=== PATIENT | male | born 1970 | race American Indian/Alaskan Native ===

== ENCOUNTER 2018-03-31 17:56 | Emergency (ER) | payer OTHER ==
[2018-03-31 17:56] VITALS: BMI 31.6
[2018-03-31] MEDS ORDERED: Sodium Chloride 0.9% 1,000 ML IV ONE (19:40)
--- NOTE | 2018-03-31 19:45 | C.PDOC ---
History Of Present Illness 47 yo male come in for evaluation of epigastric abdominal pain intermittent for past few weeks. Pt reports, pain is localized over epigastric area associated with nausea, bloating, watery non-bloody diarrhea. Pt admits, was seen by PMD 2 weeks ago due to same complaints, received Rx: Doxycycline, complete few days ago without significant improvement. Pt sts, early today, developed episode of severe epigastric pain associated with watery, non-bloody diarrhea after had some food at home. At present time, pt reports, pain is moderate improved. Otherwise,p t denies fever, chills, recent illness, CP, SOB, dyspnea, diaphoresis, palpitation, vomiting, melena, hematoschezia, back pain, UTI Sx. Ambulate to ED for evaluation, not in nay apparent distress. Time Seen by Provider: 03/31/18 19:22 Chief Complaint (Nursing): Abdominal Pain History Per: Patient Past Medical History Reviewed: Historical Data, Nursing Documentation, Vital Signs Vital Signs: Last Vital Signs Temp 97.3 F L 03/31/18 22:45 Pulse 67 03/31/18 22:45 Resp 18 03/31/18 22:45 BP 112/74 03/31/18 22:45 Pulse Ox 97 03/31/18 22:45 - Medical History PMH: Arthritis, Diabetes, HTN Denies: Anemia, Asthma, Emphysema, HIV, Migraine, Pulmonary Embolism, Chronic Kidney Disease, Seizures - [facility] Procedures DRAINAGE OF RIGHT HAND SKIN, EXTERNAL APPROACH (07/30/15) EXCISION OF RIGHT HAND SKIN, EXTERNAL APPROACH (07/30/15) INSERTION OF INFUSION DEV INTO SUP VENA CAVA, PERC APPROACH (07/30/15) REPAIR RIGHT HAND SKIN, EXTERNAL APPROACH (07/30/15) Family History: States: Unknown Family Hx - Social History Hx Tobacco Use: No Hx Alcohol Use: No Hx Substance Use: No - Immunization History Hx Tetanus Toxoid Vaccination: No Hx Influenza Vaccination: Yes Hx Pneumococcal Vaccination: No Review Of Systems Except As Marked, All Systems Reviewed And Found Negative. Constitutional: Negative for: Fever, Chills ENT: Negative for: Throat Pain Cardiovascular: Negative for: Chest Pain, Palpitations Respiratory: Negative for: Cough, Shortness of Breath, Wheezing Gastrointestinal: Positive for: Abdominal Pain, Diarrhea. Negative for: Nausea , Vomiting, Constipation, Melena, Hematochezia, Hematemesis, Rectal Pain Genitourinary: Negative for: Dysuria, Incontinence Musculoskeletal: Negative for: Neck Pain, Back Pain Skin: Negative for: Rash Neurological: Negative for: Weakness, Numbness, Headache, Dizziness Physical Exam - Physical Exam Appears: Well, Non-toxic, No Acute Distress Skin: Normal Color, Warm, Dry, No Rash Head: Normacephalic Eye(s): bilateral: PERRL Nose: No Flaring, No Discharge Oral Mucosa: Moist Throat: No Erythema, No Drooling Neck: Trachea Midline, Supple Cardiovascular: Rhythm Regular, No Murmur, No JVD, Other ((-) carotid bruits B/L ) Respiratory: No Decreased Breath Sounds, No Accessory Muscle Use, No Stridor, No Wheezing Gastrointestinal/Abdominal: Soft, Tenderness (mild epigastric), No Distention, No Guarding, No Rebound Back: No CVA Tenderness Extremity: Normal ROM, No Pedal Edema, No Deformity, No Swelling Neurological/Psych: Oriented x3, Normal Speech ED Course And Treatment - Laboratory Results Result Diagrams: 03/31/18 20:13 03/31/18 20:13 Lab Interpretation: Normal O2 Sat by Pulse Oximetry: 98 Pulse Ox Interpretation: Normal - CT Scan/US CT abd/pelvis Other Rad Studies (CT/US): Radiology Report Reviewed CT/US Interpretation: FINDINGS: Lung bases: Subpleural reticular opacities within the dependent aspect of the lower lobes may. represent subsegmental atelectasis or scarring. Heart: Left atrial enlargement. Mediastinum: A moderate hiatal hernia is present. ABDOMEN: Liver: The liver is normal in appearance. Gallbladder and bile ducts: The gallbladder is normal. No calcified stones. No ductal dilation. Pancreas: The pancreas is normal. No ductal dilation. Spleen: The spleen is normal. Adrenals: 1.7 cm nodule in the left adrenal gland. Normal appearance of the right adrenal gland. Kidneys and ureters: The kidneys are normal. The ureters are normal. No hydronephrosis. Stomach and bowel: Distended loops of contrast-filled bowel within the left upper quadrant. extending into the right lower abdomen. Focal transition point in the region of ileal wall thickening. within the right lower quadrant (axial image 128 and coronal image 67). Proximal areas of small. bowel feces suggestive of delayed transit. PELVIS: Appendix: The appendix measures up to 9 mm in diameter. However, air and contrast extends into. the appendiceal lumen. No periappendiceal fat stranding. Bladder: The bladder is normal. Reproductive: The prostate gland and seminal vesicles are normal. ABDOMEN and PELVIS: Intraperitoneal space: Normal. No free air. No significant fluid collection. Bones/joints: Thoracolumbar spondylosis. No acute osseous abnormality. No dislocation. Soft tissues: Bilateral gynecomastia. Vasculature : Normal. No abdominal aortic aneurysm. Lymph nodes: Normal. No enlarged lymph nodes. IMPRESSION: 1. Ileal wall thickening within the right lower quadrant. Correlate for inflammatory or infectious colitis. 2. Subtle transition point in the region of the bowel wall thickening with proximal bowel distention and. regions of small bowel feces suggesting some element of chronic delayed transit. 3. Left atrial enlargement. 4. Indeterminate left adrenal nodule. Recommend follow-up abdominal CT or MR in 12 months. Alternatively, if there is a history of malignancy, consider further evaluation with PET, unenhanced. abdominal CT or MR. 5. Gynecomastia. 6. The appendix measures above the upper limit of normal. However, the appendix is air and. contrast filled without secondary findings to suggest acute appendicitis. Thank you for allowing us to participate in the care of your patient. Progress Note: On re-evaluation, pot is afebrile, hemodynamicaly stable. NOn- toxic. Tolerate po well in ED. PulsEOx 98% RA. ENT: no acute findings. Neck : Supple, (-) meningeal sign. Lungs: CTA B/L, BS equal B/L. CVS: (+)S1S2, reg. Abd: benign, (-) guarding, (-) rebound, (-) localized tenderness. back: ( -) CVA tenderness. Blood work review and appears normal, no acute findings. CT abd/pelvis exam c/w colitis. Case discussed with , recommend Rx: Flaygyl with outpt f/u now. Pt has clinical findings c/w epigastric pain, colitis. Pt advised and ref. to f/u with PMD, GI in 2-3 days for re- evaluation. return to ED if anyw orsening or new changes. Disposition Counseled Patient/Family Regarding: Studies Performed, Diagnosis, Need For Followup, Rx Given - Disposition Referrals: Andrea Fatima MD [Staff Provider] - Disposition: HOME/ ROUTINE Disposition Time: 23:46 Condition: STABLE Additional Instructions: Encourage fluids Diet restriction take medication as prescribed Follow up with PMD in 2-3 days for re-evaluation. return to ED if any worsening or new changes. Prescriptions: metroNIDAZOLE [Flagyl] 500 mg PO BID #14 tab Instructions: Diarrhea and Traveler's Diarrhea, Adult (DC) Forms: [facility] ([place]) - Clinical Impression Clinical Impression: Diarrhea, Colitis, Epigastric pain
[2018-03-31] MEDS ORDERED: Iohexol 240 (50 ml) PO ONE (19:50)
[2018-03-31] MEDS ORDERED: Sodium Chloride 0.9% 1,000 ML ONE (19:56)
[2018-03-31] MEDS ORDERED: Iohexol 240 (50 ml) ONE (20:15)
[2018-03-31 20:22] LABS: BASO % 0.3 % (0.0-2.0); EOS # 0.4 K/uL (0.0-0.7); HEMOGLOBIN 12.9 g/dL (12.0-18.0); LYMPH # 0.9 K/uL (1.0-4.3); LYMPH % 14.7 % (20.0-40.0); MEAN CELL VOLUME 78.4 fL (80.0-94.0); MEAN CORPUSCULAR HEMOGLOBIN 26.8 pg (27.0-31.0); MEAN CORPUSCULAR HGB CONC 34.2 g/dL (33.0-37.0); MEAN PLATELET VOLUME 7.8 fL (7.2-11.7); MONO # 0.5 K/uL (0.0-0.8); MONO % 7.8 % (0.0-10.0); NEUT # 4.2 K/uL (1.8-7.0); NEUT % 71.2 % (50.0-75.0); NRBC % 0.4 % (0.0-2.0); RBC 4.81 Mil/uL (4.40-5.90); RED CELL DISTRIBUTION WIDTH 15.6 % (11.5-14.5); WHITE BLOOD COUNT 5.9 K/uL (4.8-10.8)
[2018-03-31 20:36] LABS: INR 1.1; PROTHROMBIN TIME 12.2 SECONDS (9.7-12.2)
[2018-03-31 20:38] LABS: ALB/GLOB RATIO 1.3 (1.0-2.1); ALT/SGPT 35 U/L (21-72); AST/SGOT 23 U/L (17-59); BLOOD UREA NITROGEN 12 mg/dL (9-20); CALCIUM 9.4 mg/dl (8.6-10.4); GFR AFRICAN-AMERICAN > 60; GFR NON-AFRICAN AMERICAN > 60; LIPASE 49 U/L (23-300)
[2018-03-31 21:10] LABS: URINE BILIRUBIN NEGATIVE (NEGATIVE); URINE BLOOD NEGATIVE (NEGATIVE); URINE CLARITY Clear (Clear); URINE COLOR Straw (YELLOW); URINE GLUCOSE (UA) NORMAL (Normal); URINE LEUKOCYTE ESTERASE NEG Leu/uL (Negative); URINE PROTEIN NEGATIVE (NEGATIVE); URINE UROBILINOGEN NORMAL mg/dL (0.2-1.0)
[2018-03-31] MEDS ORDERED: Iodixanol 320 MG/ML 100 ML BOTTLE IV ONE (21:17)
[2018-04-01 00:23] VITALS: BP 110/71; PULSE 70; RESP 16; TEMP 97.8; O2SAT 100
--- NOTE | 2018-04-01 17:49 | CT ---
Date of service: 03/31/2018 PROCEDURE: CT Abdomen and Pelvis with contrast HISTORY: abd pain COMPARISON: None. TECHNIQUE: Contrast dose: 100 mL Visipaque 320. Axial and reformatted coronal and sagittal CT images of the abdomen and pelvis were obtained after IV and oral contrast administration. Radiation dose: Total exam DLP = 789.76 mGy-cm. This CT exam was performed using one or more of the following dose reduction techniques: Automated exposure control, adjustment of the mA and/or kV according to patient size, and/or use of iterative reconstruction technique. FINDINGS: LOWER THORAX: Mild enlargement of the right heart. Mild gynecomastia. LIVER: Unremarkable. No gross lesion or ductal dilatation. GALLBLADDER AND BILE DUCTS: Unremarkable. PANCREAS: Unremarkable. No gross lesion or ductal dilatation. SPLEEN: Unremarkable. ADRENALS: Mild enlargement of the adrenal gland noted suggestive of mild hypertrophy. KIDNEYS AND URETERS: Unremarkable. No hydronephrosis. No solid mass. VASCULATURE: Unremarkable. No aortic aneurysm. BOWEL: Mid and distal ileum wall thickening noted associated with dpjx-ze-kezczzlb distal ileum small-bowel dilatation. The stomach is not distended therefore cannot be evaluated. There are also dilated small bowel loops at the left upper abdomen associated with ezek-qc-wtxeukvy wall thickening. No definite evidence of high-grade bowel obstruction. Mildly dilated right and transverse colon noted. APPENDIX: No definite evidence of acute appendicitis. PERITONEUM: Unremarkable. No free fluid. No free air. LYMPH NODES: Mildly enlarged mesenteric lymph nodes are noted in the mid and right abdomen BLADDER: The urinary bladder is displaced inferiorly and demonstrate mild diffuse wall thickening. REPRODUCTIVE: The prostate is normal in size. BONES: No acute fracture. OTHER FINDINGS: None. IMPRESSION: Gbujhb-qt-ulqegxnawx dilated small bowel loops at the left upper abdomen and in the mid and lower right abdomen associated with moderate wall thickening more prominent in the mid and distal ileum consistent with acute enteritis. The differential consideration includes infectious or inflammatory enteritis including inflammatory bowel disease. Clinical correlation is suggested. Dilated right and transverse colon without definite evidence of colitis. No evidence of high-grade bowel obstruction. Mildly enlarged mesenteric lymph nodes at the mid and lower abdomen. No evidence of appendicitis. No evidence of colitis or pancreatitis. Preliminary report was submitted by [facility].
== END 2018-04-01 00:23 | disposition home or self-care (01) ==
LOC: C.ER 17:56
DX: K52.9 Noninfective gastroenteritis and colitis, unspecified (principal); R10.13 Epigastric pain; R19.7 Diarrhea, unspecified; E11.9 Type 2 diabetes mellitus without complications; I10 Essential (primary) hypertension
CPT/HCPCS: 74177; 80053; 81001; 83690; 85025; 85610; 85730; 96361; 96374; 96375; 99285; C9113; J2405; J7030; Q9966; Q9967

== ENCOUNTER 2018-07-29 19:01 | Inpatient (IN) | payer OTHER ==
[2018-07-29 19:01] VITALS: BMI 31.6
[2018-07-29] MEDS ORDERED: Sodium Chloride 0.9% 1,000 ML IV ONE (19:52)
--- NOTE | 2018-07-29 19:52 | C.PDOC ---
History Of Present Illness 47 year old male presents to the ED c/o recurrent abdominal pain and distention for the past 2 days. Patient reports history of prior symptoms in March 2018, patient complete antibiotics course then and symptoms did not return until now. Patient followed up with his PMD but was never referred to GI. Patient rpeorts he had a bowel movement today, generalized abdominal pain associated with nausea. Patient denies fever, chills, vomit, diarrhea, constipation, rash, back pain, dysuria, hematuria. Time Seen by Provider: 07/29/18 19:29 Chief Complaint (Nursing): Abdominal Pain History Per: Patient History/Exam Limitations: no limitations Onset/Duration Of Symptoms: Days (2), Intermittent Episodes Current Symptoms Are (Timing): Still Present Severity: Moderate Location Of Pain/Discomfort: Diffuse Quality Of Discomfort: "Pain" Associated Symptoms: Nausea. denies: Vomiting, Diarrhea, Constipation, Urinary Symptoms Alleviating Factors: None Last Bowel Movement: Today Recent travel outside of the [place]: No Additional History Per: Patient Past Medical History Reviewed: Historical Data, Nursing Documentation, Vital Signs Vital Signs: Last Vital Signs Temp 97.1 F L 07/29/18 19:14 Pulse 80 07/29/18 19:14 Resp 14 07/29/18 19:14 BP 119/76 07/29/18 19:14 Pulse Ox 97 07/29/18 19:14 - Medical History PMH: Arthritis, Diabetes, HTN Denies: Anemia, Asthma, Emphysema, HIV, Migraine, Pulmonary Embolism, Chronic Kidney Disease, Seizures Surgical History: No Surg Hx - [facility] Procedures DRAINAGE OF RIGHT HAND SKIN, EXTERNAL APPROACH (07/30/15) EXCISION OF RIGHT HAND SKIN, EXTERNAL APPROACH (07/30/15) INSERTION OF INFUSION DEV INTO SUP VENA CAVA, PERC APPROACH (07/30/15) REPAIR RIGHT HAND SKIN, EXTERNAL APPROACH (07/30/15) Family History: States: Unknown Family Hx - Social History Hx Tobacco Use: No Hx Alcohol Use: No Hx Substance Use: No - Immunization History Hx Tetanus Toxoid Vaccination: No Hx Influenza Vaccination: Yes Hx Pneumococcal Vaccination: No Review Of Systems Constitutional: Negative for: Fever, Chills Cardiovascular: Negative for: Chest Pain Respiratory: Negative for: Shortness of Breath Gastrointestinal: Positive for: Nausea, Abdominal Pain. Negative for: Vomiting, Diarrhea, Constipation Genitourinary: Negative for: Dysuria, Hematuria Musculoskeletal: Negative for: Back Pain Skin: Negative for: Rash Neurological: Negative for: Weakness, Numbness Physical Exam - Physical Exam Appears: Non-toxic, In Acute Distress (due to pain) Skin: Normal Color, Warm, Dry Head: Atraumatic, Normacephalic Eye(s): bilateral: Normal Inspection Oral Mucosa: Moist Neck: Normal ROM, Supple Chest: Symmetrical Cardiovascular: Rhythm Regular Respiratory: Normal Breath Sounds, No Rales, No Rhonchi, No Wheezing Gastrointestinal/Abdominal: Soft, Tenderness (LLQ), Distention, No Guarding, No Rebound Back: No CVA Tenderness Extremity: Normal ROM, No Tenderness, No Swelling Neurological/Psych: Oriented x3, Normal Speech, Normal Cognition Gait: Steady ED Course And Treatment - Laboratory Results Result Diagrams: 07/29/18 20:05 07/29/18 20:05 O2 Sat by Pulse Oximetry: 97 (ON RA) Pulse Ox Interpretation: Normal - CT Scan/US CT abd/pelvis Other Rad Studies (CT/US): Read By Radiologist, Radiology Report Reviewed CT/US Interpretation: CT of the abdomen and pelvis with contrast. Clinical statement: Pain. Technique: Multiple axial CT images were obtained from the base of the lungs through the floor of the pelvis utilizing 5 mm axial slices after administration of nonionic intravenous contrast. Coronal and sagittal reconstructions were also obtained. Comparison: None. Findings: Chest: The visualized lung bases are clear. Dilated esophagus containing debris compatible with achalasia. Abdomen: The liver, spleen, pancreas, kidneys, gallbladder, and adrenal glands are unremarkable. The aorta is within normal limits. There is no evidence of abdominal lymphadenopathy or ascites. Pelvis: There is severe fluid distention of the small bowel with extensive bowel wall thickening noted, consistent with a small bowel obstruction. There is a transition zone suggested in the left upper abdomen, distal jejunum. There is mild fluid distention of the distal ileum to the level the ileocecal junction as well. The appendix is no rmal. The urinary bladder is within normal limits. The other pelvic structures appear grossly intact. There is no evidence of pelvic lymphadenopathy or ascites. Bones: There are no suspicious osseous abnormalities seen. Impression: 1. Moderate grade small bowel obstruction with site of narrowing suspected in the region of the jejunum. Diffuse air fluid levels are noted throughout the proximal small bowel. Diffuse bowel wall thickening as well as diffuse fluid distention is consistent with superimposed enteritis. 2. Dilated esophagus containing debris compatible with achalasia. . Electronically signed on Jul 29, 2018 10:24:37 PM EST by: Mariano Rivera M.D., ANA M Certified By ABR & CBC[facility]. Fellowship Trained MRI and CT Specialist. Progress - Re-Evaluation Re-evaluation Note: 07/29/18 22:45 D/W DR TRAORE WILL ADMIT. CONSULT EMRE BENITEZ. 07/29/18 23:27 PROCEDURE NOTE: NASOGASTRIC TUBE VISCOUS LIDOCAINE FOR LUBRICATION. 16 FR NG TUBE PLACED R NARE WO DIFF. +BILIOUS OUTPUT. PT TOLERATED WELL - Data Reviewed Data Reviewed: Lab, Diagnostic imaging, Old records Medical Decision Making Medical Decision Making: Plan: * VBG * CT abd/pelvis * Labs * Morphine 2 mg IVP * IV fluids * Zofran 4 mg IVP * UA Disposition Counseled Patient/Family Regarding: Studies Performed, Diagnosis - Disposition Disposition: HOSPITALIZED Disposition Time: 23:28 Condition: SERIOUS - POA Present On Arrival: None - Clinical Impression Clinical Impression: Bowel obstruction - Scribe Statement The provider has reviewed the documentation as recorded by the Scribe Rufino Almaraz All medical record entries made by the Scribe were at my direction and personally dictated by me. I have reviewed the chart and agree that the record accurately reflects my personal performance of the history, physical exam, medical decision making, and the department course for this patient. I have also personally directed, reviewed, and agree with the discharge instructions and disposition.
[2018-07-29 20:08] LABS: BASO % 0.5 % (0.0-2.0); EOS # 0.4 K/uL (0.0-0.7); EOS % 5.2 % (0.0-4.0); HEMOGLOBIN 12.6 g/dL (12.0-18.0); LYMPH # 1.1 K/uL (1.0-4.3); LYMPH % 14.9 % (20.0-40.0); MEAN CORPUSCULAR HEMOGLOBIN 26.5 pg (27.0-31.0); MEAN CORPUSCULAR HGB CONC 33.2 g/dL (33.0-37.0); MEAN PLATELET VOLUME 7.9 fL (7.2-11.7); MONO # 0.5 K/uL (0.0-0.8); MONO % 6.8 % (0.0-10.0); NEUT # 5.4 K/uL (1.8-7.0); NEUT % 72.6 % (50.0-75.0); NRBC % 0.1 % (0.0-2.0); RBC 4.76 Mil/uL (4.40-5.90); WHITE BLOOD COUNT 7.4 K/uL (4.8-10.8)
[2018-07-29] MEDS ORDERED: Sodium Chloride 0.9% 1,000 ML ONE (20:11)
[2018-07-29 20:17] LABS: URINE BILIRUBIN NEGATIVE (NEGATIVE); URINE BLOOD 1+ (NEGATIVE); URINE CLARITY Clear (Clear); URINE COLOR Yellow (YELLOW); URINE GLUCOSE (UA) NORMAL (Normal); URINE LEUKOCYTE ESTERASE NEG Leu/uL (Negative); URINE PROTEIN 1+ mg/dL (NEGATIVE); URINE UROBILINOGEN NORMAL mg/dL (0.2-1.0)
[2018-07-29] MEDS ORDERED: Iodixanol 320 MG/ML 100 ML BOTTLE IV ONE (20:22)
[2018-07-29 20:25] LABS: ALB/GLOB RATIO 1.2 (1.0-2.1); ALT/SGPT 35 U/L (21-72); AST/SGOT 32 U/L (17-59); BLOOD UREA NITROGEN 16 mg/dL (9-20); CALCIUM 9.2 mg/dl (8.6-10.4); GFR NON-AFRICAN AMERICAN > 60; LIPASE 46 U/L (23-300)
[2018-07-29 20:33] LABS: VENOUS BLOOD GAS BASE EXCESS 3.1 mmol/L (0.0-2.0); VENOUS BLOOD GAS PCO2 56 mmHg (40-60); VENOUS BLOOD GAS PO2 30 mm/Hg (30-55); VENOUS BLOOD PH 7.34 (7.32-7.43)
[2018-07-29] MEDS ORDERED: Lidocaine 2% Jelly (Uro-Jet) TOP ONE (23:00)
[2018-07-30] MEDS: Sodium Chloride 0.9% 1,000 ML IV SCH ×2 (00:10→13:03)
[2018-07-30] MEDS ORDERED: Dextrose 50% SYRINGE Inj (50 ml) IV ONE (06:30)
[2018-07-30] MEDS: (Novolin R) Insulin Human Regular 100 units/ml vial SC SCH ×3 (07:36→18:19)
--- NOTE | 2018-07-30 07:43 | CP.PCM.CON ---
History of Present Illness - History of Present Illness History of Present Illness: General Surgery Consult for Dr. Cote This is a 47M with a PMH of SLE, HTN, DM who presented to the ED with abdominal pain which is currently resolved. He reports that last week he had a sore throat and was given ABX however he did not initially take them .He got better and felt that he was relapsing so he went to the pharmacy to get his prescription. After he started the course of ABX he started to develop abdominal pain and diarrhea. He has been havung diarrhea and passing gas since that time. He denies any nausea or vomiting. CT scan in the ED was interpreted as an SBO with narrowing of the jejunum. An NGT was placed and durring his time in the ER he had 200cc out. He self dicsontinued the NGT on the floor overnight. Patient currently denies any symptoms gastric, enteral or other. PMH: SLE, HTN, DM PSH: Finger I&D ALL: NKDA Social: Denies vices Review of Systems - Review of Systems Review of Systems: 12 point review of symptoms conducted and negative Past Patient History - Past Medical History & Family History Past Medical History?: Yes - Past Social History Smoking Status: Never Smoked - CARDIAC Hx Hypertension: Yes - PULMONARY Hx Asthma: No Hx Emphysema: No Hx Pulmonary Embolism: No - NEUROLOGICAL Hx Migraine: No Hx Seizures: No - HEENT Hx HEENT Problems: No - RENAL Hx Chronic Kidney Disease: No - ENDOCRINE/METABOLIC Hx Endocrine Disorders: Yes Hx Diabetes Mellitus Type 2: Yes Hx Systemic Lupus Erythematosus: Yes - HEMATOLOGICAL/ONCOLOGICAL Hx Anemia: No Hx Human Immunodeficiency Virus (HIV): No - INTEGUMENTARY Hx Dermatological Problems: No - MUSCULOSKELETAL/RHEUMATOLOGICAL Hx Arthritis: Yes Hx Falls: No - GASTROINTESTINAL Hx Gastrointestinal Disorders: No HX Swallowing Problems: No - GENITOURINARY/GYNECOLOGICAL Hx Genitourinary Disorders: No Hx Hematuria: No - PSYCHIATRIC Hx Substance Use: No - SURGICAL HISTORY Hx Surgeries: Yes Other/Comment: R 3rd finger surgery - ANESTHESIA Hx Anesthesia: Yes Hx Anesthesia Reactions: No Hx Malignant Hyperthermia: No Meds Allergies/Adverse Reactions: Allergies Allergy/AdvReac Type Severity Reaction Status Date / Time SHRIMP Allergy Uncoded 07/29/18 19:17 - Medications Medications: Current Medications Sodium Chloride (Sodium Chloride 0.9%) 1,000 mls @ 100 mls/hr IV .Q10H FRED Last Admin: 07/30/18 00:10 Dose: 100 mls/hr Insulin Human Regular (Novolin R) 0 unit SC ACHS [facility]; Protocol Last Admin: 07/30/18 07:36 Dose: Not Given Morphine Sulfate (Morphine) 2 mg IVP Q4 PRN PRN Reason: Pain, moderate (4-7) Physical Exam - Constitutional Appears: Non-toxic, No Acute Distress - Head Exam Head Exam: ATRAUMATIC, NORMOCEPHALIC - Eye Exam Eye Exam: EOMI - ENT Exam ENT Exam: Mucous Membranes Moist - Respiratory Exam Respiratory Exam: NORMAL BREATHING PATTERN - Cardiovascular Exam Cardiovascular Exam: +S1, +S2 - GI/Abdominal Exam GI & Abdominal Exam: Soft. absent: Distended, Firm, Guarding, Hernia, Rebound, Rigid - Neurological Exam Neurological exam: Alert, Oriented x3 - Psychiatric Exam Psychiatric exam: Normal Affect, Normal Mood - Skin Skin Exam: Dry, Intact Results - Vital Signs Recent Vital Signs: Last Vital Signs Temp 98 F 07/29/18 23:50 Pulse 69 07/29/18 23:50 Resp 18 07/29/18 23:50 BP 136/72 07/29/18 23:50 Pulse Ox 98 07/29/18 23:50 - Labs Result Diagrams: 07/29/18 20:05 07/29/18 20:05 Labs: Laboratory Results - last 24 hr 07/29/18 07/29/18 07/29/18 20:00 20:05 20:05 WBC 7.4 RBC 4.76 Hgb 12.6 Hct 38.1 MCV 80.0 MCH 26.5 L MCHC 33.2 RDW 16.0 H Plt Count 259 MPV 7.9 Neut % (Auto) 72.6 Lymph % (Auto) 14.9 L [place] % (Auto) 6.8 Eos % (Auto) 5.2 H Baso % (Auto) 0.5 Neut # (Auto) 5.4 Lymph # (Auto) 1.1 [place] # (Auto) 0.5 Eos # (Auto) 0.4 Baso # (Auto) 0.0 pO2 30 VBG pH 7.34 VBG pCO2 56 VBG HCO3 26.1 VBG Total CO2 31.9 H VBG O2 Sat (Calc) 57.5 VBG Base Excess 3.1 H VBG Potassium 3.5 L Sodium 143.0 138 Chloride 108.0 H 99 Glucose 79 Lactate 1.6 Potassium 4.4 Carbon Dioxide 34 H Anion Gap 9 L BUN 16 Creatinine 0.8 Est GFR ( Amer) > 60 Est GFR (Non-Af Amer) > 60 Random Glucose 97 Calcium 9.2 Total Bilirubin 0.6 AST 32 ALT 35 Alkaline Phosphatase 73 Total Protein 7.2 Albumin 4.0 Globulin 3.2 Albumin/Globulin Ratio 1.2 Lipase 46 Venous Blood Potassium 3.5 L Urine Color Urine Clarity Urine pH Ur Specific [place] Urine Protein Urine Glucose (UA) Urine Ketones Urine Blood Urine Nitrate Urine Bilirubin Urine Urobilinogen Ur Leukocyte Esterase Urine WBC (Auto) Urine RBC (Auto) 07/29/18 20:09 WBC RBC Hgb Hct MCV MCH MCHC RDW Plt Count MPV Neut % (Auto) Lymph % (Auto) [place] % (Auto) Eos % (Auto) Baso % (Auto) Neut # (Auto) Lymph # (Auto) [place] # (Auto) Eos # (Auto) Baso # (Auto) pO2 VBG pH VBG pCO2 VBG HCO3 VBG Total CO2 VBG O2 Sat (Calc) VBG Base Excess VBG Potassium Sodium Chloride Glucose Lactate Potassium Carbon Dioxide Anion Gap BUN Creatinine Est GFR ( Amer) Est GFR (Non-Af Amer) Random Glucose Calcium Total Bilirubin AST ALT Alkaline Phosphatase Total Protein Albumin Globulin Albumin/Globulin Ratio Lipase Venous Blood Potassium Urine Color Yellow Urine Clarity Clear Urine pH 7.0 Ur Specific [place] 1.015 Urine Protein 1+ H Urine Glucose (UA) Normal Urine Ketones Negative Urine Blood 1+ H Urine Nitrate Negative Urine Bilirubin Negative Urine Urobilinogen Normal Ur Leukocyte Esterase Neg Urine WBC (Auto) 1 Urine RBC (Auto) 5 H - Imaging and Cardiology CT scan - abdomen Status: Image reviewed by me, Report reviewed by me CT scan - pelvis Status: Image reviewed by me, Report reviewed by me Assessment & Plan - Assessment and Plan (Free Text) Assessment: 47M with resolved abdominal pain likely enteritis Recommend CLD and advance as tolerated continue medical managment No surgical intervention at this time Further recommendations per Dr. Kera Field PGY3
[2018-07-30 08:22] LABS: BASO % 0.5 % (0.0-2.0); EOS # 0.4 K/uL (0.0-0.7); EOS % 6.9 % (0.0-4.0); HEMOGLOBIN 12.7 g/dL (12.0-18.0); LYMPH # 1.2 K/uL (1.0-4.3); LYMPH % 21.8 % (20.0-40.0); MEAN CELL VOLUME 80.4 fL (80.0-94.0); MEAN CORPUSCULAR HEMOGLOBIN 26.8 pg (27.0-31.0); MEAN CORPUSCULAR HGB CONC 33.3 g/dL (33.0-37.0); MEAN PLATELET VOLUME 8.4 fL (7.2-11.7); MONO # 0.4 K/uL (0.0-0.8); MONO % 8.1 % (0.0-10.0); NEUT # 3.4 K/uL (1.8-7.0); NEUT % 62.7 % (50.0-75.0); NRBC % 0.2 % (0.0-2.0); RBC 4.75 Mil/uL (4.40-5.90); RED CELL DISTRIBUTION WIDTH 15.9 % (11.5-14.5); WHITE BLOOD COUNT 5.4 K/uL (4.8-10.8)
[2018-07-30 08:25] LABS: INR 1.2; PROTHROMBIN TIME 12.9 SECONDS (9.7-12.2)
[2018-07-30 08:36] LABS: ALB/GLOB RATIO 1.2 (1.0-2.1); ALBUMIN 3.6 g/dL (3.5-5.0); ALT/SGPT 29 U/L (21-72); AST/SGOT 30 U/L (17-59); BLOOD UREA NITROGEN 14 mg/dL (9-20); CALCIUM 8.6 mg/dl (8.6-10.4); GFR NON-AFRICAN AMERICAN > 60
--- NOTE | 2018-07-30 08:42 | RAD ---
Date of service: 07/29/2018 HISTORY: ng tube place COMPARISON: None available. FINDINGS: BOWEL: The nasogastric tube terminates in the distal esophagus. There is moderate dilatation of small bowel loops. There is gas in the colon. BONES: Normal. OTHER FINDINGS: None. IMPRESSION: Nasogastric tube terminates in the distal esophagus. Findings most compatible with acute small bowel obstruction.
--- NOTE | 2018-07-30 10:17 | CT ---
Date of service: 07/29/2018 PROCEDURE: CT Abdomen and Pelvis with contrast HISTORY: abd pain COMPARISON: 03/31/2018. TECHNIQUE: CT scan of the abdomen and pelvis was performed after administration of intravenous contrast. Oral contrast was not administered. Coronal and sagittal reformatted images were obtained. Contrast dose: 100 mL Visipaque 320 Radiation dose: Total exam DLP = 973.33 mGy-cm. This CT exam was performed using one or more of the following dose reduction techniques: Automated exposure control, adjustment of the mA and/or kV according to patient size, and/or use of iterative reconstruction technique. FINDINGS: LOWER THORAX: The visualized lungs are clear. There is moderate bilateral gynecomastia LIVER: Mild hepatomegaly. Homogeneous enhancement. No gross lesion or ductal dilatation. GALLBLADDER AND BILE DUCTS: Well distended. No calcified gallstones, wall thickening or pericholecystic fluid. PANCREAS: Normal in size with homogeneous enhancement. No gross lesion or ductal dilatation. SPLEEN: Normal in size and appearance. ADRENALS: No discrete nodule. KIDNEYS AND URETERS: Normal in size with homogeneous enhancement. No hydronephrosis. No solid mass. VASCULATURE: No aortic aneurysm. No aortic atherosclerotic calcifications present. BOWEL: Evaluation of the bowel is limited in the absence of oral contrast. There is severe dilatation of fluid-filled proximal small bowel loops. There are normal caliber mid and distal small bowel loops. There fluid in the ascending colon. The left hemicolon is decompressed with moderate amount of retained stool. There is dilatation of the gastroesophageal junction and dilated fluid-filled distal esophagus. APPENDIX: Normal appendix. PERITONEUM: No free fluid. No free air. LYMPH NODES: No enlarged lymph nodes. BLADDER: Well distended and normal in appearance. REPRODUCTIVE: The prostate gland is normal in size. BONES: No acute fracture. Within normal limits for the patient's age. OTHER FINDINGS: None. IMPRESSION: Findings are consistent with acute moderate grade proximal small bowel obstruction with transition zone likely in the mid jejunal loops. A preliminary report was provided by [facility].
--- NOTE | 2018-07-30 11:42 | PN ---
DATE: 07/30/2018 LOCATION: 657, bed B. SUBJECTIVE: This 47-year-old male seen initially for GI consultation on 07/29/2018 as requested by the admitting MD, reexamined again today with significant improvement, has no symptoms passing gas but no bowel movement with much less abdominal distention, denied any actual chest pain, palpitation, shortness of breath or evidence of active bleeding. The patient still has persistent nausea with mild dyspepsia and reported intermittent period of lower sternal midepigastric discomfort while eating. The entire chart is reviewed including but not limited to the most recent lab and radiology study results, current and the previous medication list, current and the previous medical events. Case discussed with the staff at length. The initial official CAT scan of the abdomen and pelvis, report is seen. PHYSICAL EXAMINATION: GENERAL: A 47-year-old male. VITAL SIGNS: Afebrile with pulse of 72, respiratory rate 18 to 20, blood pressure 130/70. HEENT: Showed dry oral mucoid membrane. Nonicteric sclerae. LUNGS: Few scattered mild crepitation. Decreased air entry at bases. HEART: Positive S1 and S2. ABDOMEN: Soft. Bowel sounds are present but hypoactive with mild abdominal distention and generalized tenderness. No mass or organomegaly. No rebound tenderness or guarding. EXTREMITIES: Without significant clubbing, cyanosis or edema. RECTAL: The patient refused. NEUROLOGIC: No reported new neurological deficits, sensory or motor. IMPRESSION: 1. Abnormal CAT scan of the abdomen and pelvis with possible achalasia-like picture. 2. Acute gastroenteritis, the patient's symptoms are post oral antibiotic intake. 3. Reported history of hypertension, osteoarthritis with diabetes mellitus. 4. Respiratory alkalosis, by recent history. SUGGESTION: 1. Agree with your plan. 2. Upper endoscopy for full evaluation of the upper GI tract due to the abnormal CAT scan of the abdomen and pelvis. The patient may need colonoscopy, he is at age of 47 and never had one before, with intermittent period of partial bowel obstruction by history, that could be done as outpatient as per the patient's request also. 3. Further recommendation to follow. Thank you for letting me participate in your patient's case management and the complete stool workup as well as cancer markers to be ordered, serum lipase, amylase level. Kalyan Roth MD
[2018-07-30] MEDS ORDERED: Enoxaparin 30 mg Syringe SC SCH (12:30)
[2018-07-30] MEDS: Enoxaparin 40 mg Syringe SC ONE ×2 (18:19→18:25)
--- NOTE | 2018-07-30 19:16 | CP.PCM.HP ---
History of Present Illness - History of Present Illness History of Present Illness: 47-year-old male who developed severe abdominal pain is seen in the [facility] emergency room. Patient has a past history of similar abdominal pain and distention in March 2018. Patient is present under treatment for system ic lupus with Raynaud. Mister Underwood was examined by the ER physiciian and a CT scan of the abdomen was ordered. The exam showed a small bowel obstruction and the patient was admitted for further evaluation and treatment. GI and surgical evaluations were requested. Present on Admission - Present on Admission Any Indicators Present on Admission: No History of DVT/PE: No History of Uncontrolled Diabetes: No Urinary Catheter: No Decubitus Ulcer Present: No History Surgical Site Infection Following: None Review of Systems - Review of Systems Systems not reviewed;Unavailable: Other (abdominal pain) - Constitutional Constitutional: Fatigue - Gastrointestinal Gastrointestinal: Abdominal Pain, Heartburn - Integumentary Integumentary: Dry Skin - Neurological Neurological: Dizziness Past Patient History - Tetanus Immunizations Tetanus Immunization: Up to Date - Past Medical History & Family History Past Medical History?: Yes - Past Social History Smoking Status: Never Smoked Chewing Tobacco Use: No Cigar Use: No Alcohol: None Home Situation {Lives}: With Family - CARDIAC Hx Hypertension: Yes - PULMONARY Hx Asthma: No Hx Emphysema: No Hx Pulmonary Embolism: No - NEUROLOGICAL Hx Dizziness: Yes Hx Migraine: No Hx Seizures: No - HEENT Hx HEENT Problems: No - RENAL Hx Chronic Kidney Disease: No - ENDOCRINE/METABOLIC Hx Endocrine Disorders: Yes Hx Diabetes Mellitus Type 2: Yes Hx Systemic Lupus Erythematosus: Yes - HEMATOLOGICAL/ONCOLOGICAL Hx Anemia: No Hx Human Immunodeficiency Virus (HIV): No - INTEGUMENTARY Hx Dermatological Problems: No - MUSCULOSKELETAL/RHEUMATOLOGICAL Hx Arthritis: Yes Hx Falls: No - GASTROINTESTINAL Hx Gastrointestinal Disorders: No HX Swallowing Problems: No - GENITOURINARY/GYNECOLOGICAL Hx Genitourinary Disorders: No Hx Hematuria: No - PSYCHIATRIC Hx Substance Use: No - SURGICAL HISTORY Hx Surgeries: Yes Other/Comment: R 3rd finger surgery - ANESTHESIA Hx Anesthesia: Yes Hx Anesthesia Reactions: No Hx Malignant Hyperthermia: No Meds Allergies/Adverse Reactions: Allergies Allergy/AdvReac Type Severity Reaction Status Date / Time SHRIMP Allergy Uncoded 07/29/18 19:17 Physical Exam - Head Exam Head Exam: NORMOCEPHALIC - Eye Exam Eye Exam: Normal appearance Pupil Exam: NORMAL ACCOMODATION - ENT Exam ENT Exam: Normal Exam - Neck Exam Neck exam: Positive for: Normal Inspection - Respiratory Exam Respiratory Exam: Clear to Auscultation Bilateral - Cardiovascular Exam Cardiovascular Exam: REGULAR RHYTHM - GI/Abdominal Exam GI & Abdominal Exam: Distended - Rectal Exam Rectal Exam: Deferred - Exam Exam: NORMAL INSPECTION - Extremities Exam Extremities exam: Positive for: tenderness, pedal pulses present - Back Exam Back exam: NORMAL INSPECTION - Neurological Exam Neurological exam: Oriented x3 - Psychiatric Exam Psychiatric exam: Anxious - Skin Skin Exam: Dry Results - Vital Signs Recent Vital Signs: Last Vital Signs Temp 97.3 F L 07/30/18 18:32 Pulse 69 07/30/18 18:32 Resp 20 07/30/18 18:32 BP 107/71 07/30/18 18:32 Pulse Ox 96 07/30/18 18:32 - Labs Result Diagrams: 07/30/18 08:07 07/30/18 08:07 Labs: Laboratory Results - last 24 hr 07/29/18 07/29/18 07/29/18 20:00 20:05 20:05 WBC 7.4 RBC 4.76 Hgb 12.6 Hct 38.1 MCV 80.0 MCH 26.5 L MCHC 33.2 RDW 16.0 H Plt Count 259 MPV 7.9 Neut % (Auto) 72.6 Lymph % (Auto) 14.9 L [place] % (Auto) 6.8 Eos % (Auto) 5.2 H Baso % (Auto) 0.5 Neut # (Auto) 5.4 Lymph # (Auto) 1.1 [place] # (Auto) 0.5 Eos # (Auto) 0.4 Baso # (Auto) 0.0 PT INR APTT pO2 30 VBG pH 7.34 VBG pCO2 56 VBG HCO3 26.1 VBG Total CO2 31.9 H VBG O2 Sat (Calc) 57.5 VBG Base Excess 3.1 H VBG Potassium 3.5 L Sodium 143.0 138 Chloride 108.0 H 99 Glucose 79 Lactate 1.6 Potassium 4.4 Carbon Dioxide 34 H Anion Gap 9 L BUN 16 Creatinine 0.8 Est GFR ( Amer) > 60 Est GFR (Non-Af Amer) > 60 POC Glucose (mg/dL) Random Glucose 97 Calcium 9.2 Phosphorus Magnesium Total Bilirubin 0.6 AST 32 ALT 35 Alkaline Phosphatase 73 Total Protein 7.2 Albumin 4.0 Globulin 3.2 Albumin/Globulin Ratio 1.2 Lipase 46 Carcinoembryonic Ag CA 19-9 Antigen Venous Blood Potassium 3.5 L Urine Color Urine Clarity Urine pH Ur Specific [place] Urine Protein Urine Glucose (UA) Urine Ketones Urine Blood Urine Nitrate Urine Bilirubin Urine Urobilinogen Ur Leukocyte Esterase Urine WBC (Auto) Urine RBC (Auto) 07/29/18 07/30/18 07/30/18 20:09 06:16 06:18 WBC RBC Hgb Hct MCV MCH MCHC RDW Plt Count MPV Neut % (Auto) Lymph % (Auto) [place] % (Auto) Eos % (Auto) Baso % (Auto) Neut # (Auto) Lymph # (Auto) [place] # (Auto) Eos # (Auto) Baso # (Auto) PT INR APTT pO2 VBG pH VBG pCO2 VBG HCO3 VBG Total CO2 VBG O2 Sat (Calc) VBG Base Excess VBG Potassium Sodium Chloride Glucose Lactate Potassium Carbon Dioxide Anion Gap BUN Creatinine Est GFR ( Amer) Est GFR (Non-Af Amer) POC Glucose (mg/dL) 67 67 Random Glucose Calcium Phosphorus Magnesium Total Bilirubin AST ALT Alkaline Phosphatase Total Protein Albumin Globulin Albumin/Globulin Ratio Lipase Carcinoembryonic Ag CA 19-9 Antigen Venous Blood Potassium Urine Color Yellow Urine Clarity Clear Urine pH 7.0 Ur Specific [place] 1.015 Urine Protein 1+ H Urine Glucose (UA) Normal Urine Ketones Negative Urine Blood 1+ H Urine Nitrate Negative Urine Bilirubin Negative Urine Urobilinogen Normal Ur Leukocyte Esterase Neg Urine WBC (Auto) 1 Urine RBC (Auto) 5 H 07/30/18 07/30/18 07/30/18 06:57 08:07 08:07 WBC 5.4 RBC 4.75 Hgb 12.7 Hct 38.2 MCV 80.4 MCH 26.8 L MCHC 33.3 RDW 15.9 H Plt Count 250 MPV 8.4 Neut % (Auto) 62.7 Lymph % (Auto) 21.8 [place] % (Auto) 8.1 Eos % (Auto) 6.9 H Baso % (Auto) 0.5 Neut # (Auto) 3.4 Lymph # (Auto) 1.2 [place] # (Auto) 0.4 Eos # (Auto) 0.4 Baso # (Auto) 0.0 PT 12.9 H INR 1.2 APTT 31 pO2 VBG pH VBG pCO2 VBG HCO3 VBG Total CO2 VBG O2 Sat (Calc) VBG Base Excess VBG Potassium Sodium Chloride Glucose Lactate Potassium Carbon Dioxide Anion Gap BUN Creatinine Est GFR ( Amer) Est GFR (Non-Af Amer) POC Glucose (mg/dL) 121 H Random Glucose Calcium Phosphorus Magnesium Total Bilirubin AST ALT Alkaline Phosphatase Total Protein Albumin Globulin Albumin/Globulin Ratio Lipase Carcinoembryonic Ag CA 19-9 Antigen Venous Blood Potassium Urine Color Urine Clarity Urine pH Ur Specific [place] Urine Protein Urine Glucose (UA) Urine Ketones Urine Blood Urine Nitrate Urine Bilirubin Urine Urobilinogen Ur Leukocyte Esterase Urine WBC (Auto) Urine RBC (Auto) 07/30/18 07/30/18 08:07 17:30 WBC RBC Hgb Hct MCV MCH MCHC RDW Plt Count MPV Neut % (Auto) Lymph % (Auto) [place] % (Auto) Eos % (Auto) Baso % (Auto) Neut # (Auto) Lymph # (Auto) [place] # (Auto) Eos # (Auto) Baso # (Auto) PT INR APTT pO2 VBG pH VBG pCO2 VBG HCO3 VBG Total CO2 VBG O2 Sat (Calc) VBG Base Excess VBG Potassium Sodium 139 Chloride 103 Glucose Lactate Potassium 3.9 Carbon Dioxide 30 Anion Gap 10 BUN 14 Creatinine 0.7 L Est GFR ( Amer) > 60 Est GFR (Non-Af Amer) > 60 POC Glucose (mg/dL) 87 Random Glucose 99 Calcium 8.6 Phosphorus 3.3 Magnesium 2.2 Total Bilirubin 0.6 AST 30 ALT 29 Alkaline Phosphatase 75 Total Protein 6.5 Albumin 3.6 Globulin 2.9 Albumin/Globulin Ratio 1.2 Lipase Carcinoembryonic Ag 1.1 CA 19-9 Antigen 9.3 Venous Blood Potassium Urine Color Urine Clarity Urine pH Ur Specific [place] Urine Protein Urine Glucose (UA) Urine Ketones Urine Blood Urine Nitrate Urine Bilirubin Urine Urobilinogen Ur Leukocyte Esterase Urine WBC (Auto) Urine RBC (Auto) Assessment & Plan (1) Systemic lupus Status: Acute (2) Bowel obstruction Status: Acute (3) Diabetes Status: Acute Priority: Low (4) Raynauds disease Status: Acute Priority: High
[2018-07-31] MEDS: Sodium Chloride 0.9% 1,000 ML IV SCH (01:11)
[2018-07-31 07:16] LABS: BASO % 0.6 % (0.0-2.0); EOS # 0.3 K/uL (0.0-0.7); EOS % 7.4 % (0.0-4.0); HEMOGLOBIN 12.8 g/dL (12.0-18.0); LYMPH # 0.9 K/uL (1.0-4.3); LYMPH % 24.2 % (20.0-40.0); MEAN CELL VOLUME 81.2 fL (80.0-94.0); MEAN CORPUSCULAR HEMOGLOBIN 26.6 pg (27.0-31.0); MEAN CORPUSCULAR HGB CONC 32.8 g/dL (33.0-37.0); MONO # 0.3 K/uL (0.0-0.8); MONO % 9.2 % (0.0-10.0); NEUT # 2.2 K/uL (1.8-7.0); NEUT % 58.6 % (50.0-75.0); NRBC % 0.1 % (0.0-2.0); RBC 4.82 Mil/uL (4.40-5.90); RED CELL DISTRIBUTION WIDTH 15.9 % (11.5-14.5); WHITE BLOOD COUNT 3.7 K/uL (4.8-10.8)
[2018-07-31] MEDS: Dextrose 5%/0.45% NS 1,000 ML IV SCH (07:34)
[2018-07-31] MEDS: (Novolin R) Insulin Human Regular 100 units/ml vial SC SCH ×4 (07:35→22:46)
--- NOTE | 2018-07-31 08:54 | CON ---
DATE: 07/29/2018 SUBJECTIVE: I was called for GI consultation by the admitting medical team. The patient is seen and fully examined on 07/29/2018 as requested by the admitting MD. The entire chart is reviewed including but not limited to the most recent lab and radiology study results, current and the previous medication list, current and the previous medical events, allergy to medication list as well as also available current and the previous medical records. Case discussed with the staff at length before and immediately after my GI consultation on 07/29/2018. This 47-year-old male was admitted to the hospital through the emergency room with the main complaint of severe crampy abdominal pain associated with abdominal distention, dyspepsia for which, before his admission had been on antibiotic without any improvement. The patient had a similar episode apparently in 03/2018, which subsequently resolved by itself. Denied any actual chest pain, palpitation, chills, fever; but mild nausea with dyspepsia. Last bowel movement reported, according to the patient on the day of his admission, morning time. No reported active GI bleeding. The patient never had colonoscopy or upper endoscopy or any complete workup for his symptoms before. PAST MEDICAL HISTORY: Including mainly but not limited to; 1. Diabetes mellitus. 2. Hypertension. 3. Osteoarthritis as per the patient's statement. 4. Peptic ulcer disease. CURRENT MEDICATIONS: Both admission medication lists were reviewed. FAMILY HISTORY: Unknown. SOCIAL HISTORY: Denied any history of cigarette smoking or alcohol intake recently. ALLERGIES TO MEDICATIONS: LIST REVIEWED. PHYSICAL EXAMINATION: GENERAL: A 47-year-old male, afebrile, awake, alert, and oriented. VITAL SIGNS: Pulse 82, respiratory rate 16 to 18, blood pressure 124/74. HEENT: Pale dry oral mucous membrane. Nonicteric sclerae. LUNGS: Few scattered crepitation with decreased air entry at bases. HEART: Positive S1 and S2. ABDOMEN: Moderate distention and generalized diffuse tenderness. Bowel sounds are hypoactive. No mass or organomegaly. No rebound tenderness or guarding. RECTAL: The patient refused. EXTREMITIES: Without significant clubbing, cyanosis, or edema. NEUROLOGIC: No reported new neurological deficits, sensory or motor. No new reported focal deficits. LABORATORY DATA: Initial blood workup at the time of the admission showed normal CBC, normal SMA-18, but increased CO2 content of 34, indicative of respiratory alkalosis. DIAGNOSTIC DATA: Official report of abdominal and pelvic CAT scan seen indicative of moderate grade small bowel obstruction with the site of the narrowing suspected in the region of the duodenum Diffuse bowel thickening and diffuse blood distention is consistent with superimposed enteritis Dilated esophagus containing debris compatible with achalasia, as per the official report of the CAT scan of the abdomen and pelvis. IMPRESSION: 1. Abnormal CAT scan of the abdomen and pelvis with possible achalasia as well as intermittent periods of bowel obstruction with acute enteritis. 2. Re-exacerbation of peptic ulcer disease with episodes of nausea and vomiting recently. 3. Known history of hypertension, osteoarthritis, and diabetes mellitus. SUGGESTIONS: 1. Agree with your plan. 2. Continue current treatment with Reglan IV 5 mg q.6h. 3. Repeat complete stool workup. 4. Cancer markers. 5. Endoscopic evaluation of the upper and lower GI tract when the patient is more stable clinically. 6. The patient may need upper GI small bowel follow-through when he is more stable clinically that could be done however as outpatient. 7. Further recommendation to follow. 8. Sedimentation rate. 9. Complete stool workup for possible parasite infection. Thank you for letting me participate in your patient's case management. Kalyan Roth MD
[2018-07-31] MEDS ORDERED: Midazolam 2 MG/2 ML VIAL ONE (09:50)
[2018-07-31] MEDS ORDERED: Propofol 10 mg/ml Inj (20 ML) ONE (09:50)
[2018-07-31] MEDS ORDERED: Lactated Ringer's 500 ML IV SCH (10:00)
[2018-07-31] MEDS ORDERED: Peg-Electrolyte Oral Soln 4L (Golytely) PO ONE (11:30)
--- NOTE | 2018-07-31 11:50 | RAD ---
Date of service: 07/31/2018 HISTORY: infiltrate COMPARISON: Chest radiographs 07/30/2015. TECHNIQUE: Chest PA and lateral FINDINGS: LUNGS: No active pulmonary disease. PLEURA: No significant pleural effusion identified. No pneumothorax apparent. CARDIOVASCULAR: No aortic atherosclerotic calcification present. Normal cardiac size. No pulmonary vascular congestion. OSSEOUS STRUCTURES: No significant abnormalities. VISUALIZED UPPER ABDOMEN: Normal. OTHER FINDINGS: None. IMPRESSION: No interval acute cardiopulmonary disease appreciated.
[2018-07-31] MEDS ORDERED: Glucagon Recombinant 1 mg Inj ONE (12:38)
[2018-07-31] MEDS ORDERED: Glucagon Recombinant 1 mg Inj IM ONE (12:45)
--- NOTE | 2018-07-31 13:04 | PCM.RRT ---
<Griffin Pham - Last Filed: 07/31/18 13:01> [employer] Nurses Assessment - Situation Date: 07/31/18 Time W[employer]ING [employer] was called: 12:31 [employer] Location:: 6T Med/Surg Room Number: 657B [employer] Reason for Call: Change in Mental Status [employer]OVERING [employer]OR Called By: RN I.Reason for WALL [employer]OVERING [employer]OR - A) Acute Change in Patient: (Select all that apply): Acute change in mental status Subjective: W[employer] COVERING [employer]OR called by nursing at 12:31 2/2 AMS. Patient was mildly disoriented/lethargic and found to gave a glucose of 33 on finger stick. Patient was given Glutose 15 PO and his condition improved mederately, still with some lethargy. IV access was not established, and a state order was placed for Glucagon IM and Mid-Line placement. At the end of the rapid, his glucose improved only slightly to 38. Patient was AAOx3 at time of exam and expressed apprehension about IV placement as he is afraid of needles. Denies fever, chills, headache, chest pain, palpitations, dyspnea, cough, abdominal pain, nausea/vomiting, diarrhea/constipation, dysuria, urinary frequency, or change in urinary stream. 12-point review of systems is otherwise negative without any additional acute complaints. - Neurological Status (Select all that apply): Alert, Responsive, Oriented, Verbal, Follows Commands, Lethargic - Extremities Exam Additional comments: - Constitutional Appears: Non-toxic, Lethargic - Head Exam Head Exam: ATRAUMATIC, NORMOCEPHALIC - Eye Exam Eye Exam: EOMI - ENT Exam ENT Exam: Mucous Membranes Moist - Respiratory Exam Respiratory Exam: NORMAL BREATHING PATTERN, Clear to Auscultation - Cardiovascular Exam Cardiovascular Exam: Regular Rate, +S1, +S2 - GI/Abdominal Exam GI & Abdominal Exam: Soft. absent: Distended, Firm, Guarding, Hernia, Rebound, Rigid - Neurological Exam Neurological exam: Alert, Oriented x3 - Psychiatric Exam Psychiatric exam: Normal Affect, Normal Mood - Skin Skin Exam: Dry, Intact <Griffin Dillard H - Last Filed: 07/31/18 15:17> Attending/Attestation - Attestation I have personally seen and examined this patient.: Yes I have fully participated in the care of the patient.: Yes I have reviewed all pertinent clinical information, including history, physical exam and plan: Yes Notes (Text): 07/31/18 15:16 Hospitalist note: Patient had WALL COVERING [employer]OR, low accuchecks. Will need IV access, midline order placed. Patient was AAO x 3, he denied nausea, denied vommitting, denied tremors. Griffin Dillard
[2018-07-31 14:45] LABS: AMYLASE 64 U/L (30-110)
[2018-07-31] MEDS ORDERED: Bisacodyl 5mg EC Tab PO ONE (17:00)
--- NOTE | 2018-07-31 18:07 | CARD ---
APPROVED REPORT Date of service: 07/30/2018 EKG Measurement Heart [id number] [id number] <Conclusion> Sinus rhythm with premature atrial complexes Left axis deviation Nonspecific intraventricular block Abnormal ECG
--- NOTE | 2018-07-31 22:12 | CP.PCM.PN ---
Subjective - Date & Time of Evaluation Date of Evaluation: 07/31/18 Time of Evaluation: 19:20 - Subjective Subjective: patient underwent endoscopy today. he was found to hav erythematous mucosa and a hiatal hernia. Patient tolerated the procedure well. review of patient's EKG reveals a left axis deviation. Consult requested with cardiology. Objective - Vital Signs/Intake and Output Vital Signs (last 24 hours): Temp Pulse Resp BP Pulse Ox 97.8 F 70 20 134/82 98 07/31/18 15:00 07/31/18 15:00 07/31/18 15:00 07/31/18 15:00 07/31/18 15:00 Intake and Output: 07/31/18 08/01/18 18:59 06:59 Intake Total 300 Balance 300 - Medications Medications: Current Medications Dextrose/Sodium Chloride (Dextrose 5%/0.45% Ns 1000 Ml) 1,000 mls @ 40 mls/hr IV .Q24H [facility] Last Admin: 07/31/18 07:34 Dose: 40 mls/hr Insulin Human Regular (Novolin R) 0 unit SC ACHS [facility]; Protocol Last Admin: 07/31/18 17:05 Dose: Not Given Metoclopramide HCl (Reglan) 5 mg IVP Q6H [facility] Stop: 08/01/18 08:31 Last Admin: 07/31/18 21:50 Dose: 5 mg Morphine Sulfate (Morphine) 2 mg IVP Q4 PRN PRN Reason: Pain, moderate (4-7) Pantoprazole Sodium (Protonix Inj) 40 mg IVP DAILY [facility] Last Admin: 07/31/18 14:36 Dose: 40 mg - Labs Labs: 07/31/18 07:05 07/30/18 08:07 PT 12.9 SECONDS (9.7-12.2) H 07/30/18 08:07 INR 1.2 07/30/18 08:07 APTT 31 SECONDS (21-34) 07/30/18 08:07 - Constitutional Appears: No Acute Distress - Head Exam Head Exam: NORMOCEPHALIC - Eye Exam Eye Exam: Normal appearance Pupil Exam: NORMAL ACCOMODATION - ENT Exam ENT Exam: Normal Exam - Neck Exam Neck Exam: Normal Inspection - Respiratory Exam Respiratory Exam: NORMAL BREATHING PATTERN - Cardiovascular Exam Cardiovascular Exam: REGULAR RHYTHM - GI/Abdominal Exam GI & Abdominal Exam: Normal Bowel Sounds - Rectal Exam Rectal Exam: Deferred - Exam Exam: NORMAL INSPECTION - Extremities Exam Extremities Exam: Normal Inspection - Back Exam Back Exam: NORMAL INSPECTION - Neurological Exam Neurological Exam: Oriented x3 - Psychiatric Exam Psychiatric exam: Anxious - Skin Skin Exam: Dry Assessment and Plan (1) Systemic lupus Status: Acute (2) Bowel obstruction Status: Acute (3) Diabetes Status: Acute (4) Raynauds disease Status: Acute
[2018-08-01] MEDS: (Novolin R) Insulin Human Regular 100 units/ml vial SC SCH ×2 (07:37→11:50)
[2018-08-01] MEDS ORDERED: Propofol 10 mg/ml Inj (20 ML) ONE (07:55)
[2018-08-01] MEDS: Dextrose 5%/0.45% NS 1,000 ML IV SCH (09:12)
[2018-08-01 15:11] LABS: RNP <1.0 AI (<1.0)
[2018-08-01 16:26] VITALS: BP 131/82; PULSE 67; RESP 20; TEMP 97.5; O2SAT 99
--- NOTE | 2018-08-01 22:20 | CP.PCM.DIS ---
Provider - Provider Date of Admission: 07/29/18 22:44 Attending physician: Andrea Fatima MD Consults: 07/29/18 22:44 Physician Consult Routine Comment: *REQUESTED BY PMD Consulting Provider: Kalyan Bray Consulting Physician: Kalyan Bray Reason for Consult: SBO 07/29/18 23:04 General Surgery Consult Routine Comment: small bowel obstruction Consulting Provider: Claudy Cote Jr. Consulting Physician: Claudy Cote Jr. Reason for Consult: small bowel obstruction 07/31/18 13:48 Physician Consult Routine Comment: Consulting Provider: Mariano Rowe Consulting Physician: Mariano Rowe Reason for Consult: abnormal ekg Time Spent in preparation of Discharge (in minutes): 26 Diagnosis - Discharge Diagnosis (1) Systemic lupus Status: Acute (2) Bowel obstruction Status: Acute (3) Diabetes Status: Acute Priority: Low (4) Raynauds disease Status: Acute Priority: High (5) Esophageal hiatus hernia Status: Acute (6) Hemorrhoids Status: Acute Hospital Course - Lab Results Lab Results: Micro Results 07/30/18 15:20 Stool Stool Culture - Final NO SALMONELLA, SHIGELLA OR CAMPYLOBACTER ISOLATED. Most Recent Lab Values WBC 3.7 K/uL (4.8-10.8) L 07/31/18 07:05 RBC 4.82 Mil/uL (4.40-5.90) 07/31/18 07:05 Hgb 12.8 g/dL (12.0-18.0) 07/31/18 07:05 Hct 39.1 % (35.0-51.0) 07/31/18 07:05 MCV 81.2 fL (80.0-94.0) 07/31/18 07:05 MCH 26.6 pg (27.0-31.0) L 07/31/18 07:05 MCHC 32.8 g/dL (33.0-37.0) L 07/31/18 07:05 RDW 15.9 % (11.5-14.5) H 07/31/18 07:05 Plt Count 229 K/uL (130-400) 07/31/18 07:05 MPV 8.0 fL (7.2-11.7) 07/31/18 07:05 Neut % (Auto) 58.6 % (50.0-75.0) 07/31/18 07:05 Lymph % (Auto) 24.2 % (20.0-40.0) 07/31/18 07:05 [place] % (Auto) 9.2 % (0.0-10.0) 07/31/18 07:05 Eos % (Auto) 7.4 % (0.0-4.0) H 07/31/18 07:05 Baso % (Auto) 0.6 % (0.0-2.0) 07/31/18 07:05 Neut # (Auto) 2.2 K/uL (1.8-7.0) 07/31/18 07:05 Lymph # (Auto) 0.9 K/uL (1.0-4.3) L 07/31/18 07:05 [place] # (Auto) 0.3 K/uL (0.0-0.8) 07/31/18 07:05 Eos # (Auto) 0.3 K/uL (0.0-0.7) 07/31/18 07:05 Baso # (Auto) 0.0 K/uL (0.0-0.2) 07/31/18 07:05 PT 12.9 SECONDS (9.7-12.2) H 07/30/18 08:07 INR 1.2 07/30/18 08:07 APTT 31 SECONDS (21-34) 07/30/18 08:07 pO2 30 mm/Hg (30-55) 07/29/18 20:00 VBG pH 7.34 (7.32-7.43) 07/29/18 20:00 VBG pCO2 56 mmHg (40-60) 07/29/18 20:00 VBG HCO3 26.1 mmol/L 07/29/18 20:00 VBG Total CO2 31.9 mmol/L (22-28) H 07/29/18 20:00 VBG O2 Sat (Calc) 57.5 % (40-65) 07/29/18 20:00 VBG Base Excess 3.1 mmol/L (0.0-2.0) H 07/29/18 20:00 VBG Potassium 3.5 mmol/L (3.6-5.2) L 07/29/18 20:00 Sodium 143.0 mmol/l (132-148) 07/29/18 20:00 Chloride 108.0 mmol/L (98-107) H 07/29/18 20:00 Glucose 79 mg/dl (75-110) 07/29/18 20:00 Lactate 1.6 mmol/L (0.7-2.1) 07/29/18 20:00 Sodium 139 mmol/L (132-148) 07/30/18 08:07 Potassium 3.9 mmol/L (3.6-5.2) 07/30/18 08:07 Chloride 103 mmol/L (98-107) 07/30/18 08:07 Carbon Dioxide 30 mmol/L (22-30) 07/30/18 08:07 Anion Gap 10 (10-20) 07/30/18 08:07 BUN 14 mg/dL (9-20) 07/30/18 08:07 Creatinine 0.7 mg/dL (0.8-1.5) L 07/30/18 08:07 Est GFR ( Amer) > 60 07/30/18 08:07 Est GFR (Non-Af Amer) > 60 07/30/18 08:07 POC Glucose (mg/dL) 82 mg/dL (65-110) 08/01/18 06:37 Random Glucose 99 mg/dL (75-110) 07/30/18 08:07 Calcium 8.6 mg/dl (8.6-10.4) 07/30/18 08:07 Phosphorus 3.3 mg/dL (2.5-4.5) 07/30/18 08:07 Magnesium 2.2 mg/dL (1.6-2.3) 07/30/18 08:07 Total Bilirubin 0.6 mg/dL (0.2-1.3) 07/30/18 08:07 AST 30 U/L (17-59) 07/30/18 08:07 ALT 29 U/L (21-72) 07/30/18 08:07 Alkaline Phosphatase 75 U/L (38-126) 07/30/18 08:07 Total Creatine Kinase 76 U/L (55-170) 07/31/18 14:05 C-React Prot High Sens 4.97 mg/L (1.00-3.00) H 07/31/18 14:05 Total Protein 6.5 g/dL (6.3-8.3) 07/30/18 08:07 Albumin 3.6 g/dL (3.5-5.0) 07/30/18 08:07 Globulin 2.9 gm/dL (2.2-3.9) 07/30/18 08:07 Albumin/Globulin Ratio 1.2 (1.0-2.1) 07/30/18 08:07 Cholesterol 115 mg/dL (0-199) 07/31/18 14:05 Amylase 64 U/L (30-110) 07/31/18 14:05 Lipase 46 U/L (23-300) 07/29/18 20:05 Carcinoembryonic Ag 1.1 ng/mL (0-3.0) 07/30/18 08:07 CA 19-9 Antigen 9.3 U/mL (0-37) 07/30/18 08:07 Venous Blood Potassium 3.5 mmol/L (3.6-5.2) L 07/29/18 20:00 Urine Color Yellow (YELLOW) 07/29/18 20:09 Urine Clarity Clear (Clear) 07/29/18 20:09 Urine pH 7.0 (5.0-8.0) 07/29/18 20:09 Ur Specific [place] 1.015 (1.003-1.030) 07/29/18 20:09 Urine Protein 1+ mg/dL (NEGATIVE) H 07/29/18 20:09 Urine Glucose (UA) Normal mg/dL (Normal) 07/29/18 20:09 Urine Ketones Negative mg/dL (NEGATIVE) 07/29/18 20:09 Urine Blood 1+ (NEGATIVE) H 07/29/18 20:09 Urine Nitrate Negative (NEGATIVE) 07/29/18 20:09 Urine Bilirubin Negative (NEGATIVE) 07/29/18 20:09 Urine Urobilinogen Normal mg/dL (0.2-1.0) 07/29/18 20:09 Ur Leukocyte Esterase Neg [place]/uL (Negative) 07/29/18 20:09 Urine WBC (Auto) 1 /hpf (0-5) 07/29/18 20:09 Urine RBC (Auto) 5 /hpf (0-3) H 07/29/18 20:09 Stool Leukocytes, Qual Negative (NEGATIVE) 07/30/18 08:20 Cycl Citrul Peptide IgG <16 Units 07/31/18 14:05 SOLDERER DIPPER Antibody <1.0 AI (<1.0) 07/31/18 14:05 SOLDERER DIPPER Antibody Interp Negative (Negative) 07/31/18 14:05 Anti-Streptolysin O Ab Negative (NEGATIVE) 07/31/18 14:05 Discharge Exam - Head Exam Head Exam: NORMOCEPHALIC - Eye Exam Eye Exam: Normal appearance Pupil Exam: NORMAL ACCOMODATION - ENT Exam ENT Exam: Normal Exam - Neck Exam Neck exam: Normal Inspection - Respiratory Exam Respiratory Exam: Decreased Breath Sounds - Cardiovascular Exam Cardiovascular Exam: REGULAR RHYTHM - GI/Abdominal Exam GI & Abdominal Exam: Distended - Rectal Exam Rectal Exam: Deferred - Exam Exam: NORMAL INSPECTION - Extremities Exam Extremities exam: pedal pulses present - Back Exam Back exam: NORMAL INSPECTION - Neurological Exam Neurological exam: Oriented x3 - Psychiatric Exam Psychiatric exam: Anxious - Skin Skin Exam: Dry Discharge Plan - Follow Up Plan Condition: SERIOUS Disposition: HOME/ ROUTINE Instructions: High Fiber Diet, Diabetes Exchange Diet, Colonoscopy (DC), Diabetes Diet , Small Bowel Obstruction (DC), Upper GI Endoscopy (DC) Additional Instructions: Please follow up with Dr. Fatima office in 1 week please follow up with Dr. Rowe office in 1 week - call and make appointment Please follow up with Dr. Bray office in 5 weeks (follow up visit) Resume all home medications Referrals: Kalyan Bray [Staff Provider] - Andrea Fatima MD [Staff Provider] - Mariano Rowe MD [Staff Provider] -
== END 2018-08-01 16:28 | disposition home or self-care (01) | DRG 390 ==
LOC: C.ER 19:01 → C.9E 22:44 → C.6T 23:04
PROVIDERS: ADMIT Internal Medicine; ATTEND Internal Medicine
PROC: 0DB88ZX Excision of Small Intestine, Via Natural or Artificial Opening Endoscopic, Diagnostic (ICD-10-PCS; 2018-07-31)
PROC: 0DBM8ZX Excision of Descending Colon, Via Natural or Artificial Opening Endoscopic, Diagnostic (ICD-10-PCS; principal; 2018-08-01 08:00)
DX: K56.609 Unspecified intestinal obstruction, unspecified as to partial versus complete obstruction (principal); K52.9 Noninfective gastroenteritis and colitis, unspecified; M32.9 Systemic lupus erythematosus, unspecified; K44.9 Diaphragmatic hernia without obstruction or gangrene; I73.00 Raynaud's syndrome without gangrene; K64.4 Residual hemorrhoidal skin tags; K64.8 Other hemorrhoids; E11.9 Type 2 diabetes mellitus without complications; I10 Essential (primary) hypertension